=== PATIENT | male | born 1945 | race Caucasian/White ===

== ENCOUNTER 2021-03-28 10:14 | Outpatient (REF) | payer BC, SELFPAY | END 2021-03-28 10:15 | disposition home or self-care (01) | LOC: HO.HMGCLDS 10:14 | PROVIDERS: PCP Family Medicine; Visit Provider Internal Medicine | DX: Z20.822 Contact with and (suspected) exposure to COVID-19 (principal) | CPT/HCPCS: C9803; U0003; U0005 ==

== ENCOUNTER → 2021-06-01 08:21 | Outpatient (BNVA) | payer BC, SELFPAY | PROVIDERS: PCP Family Medicine; Referring Provider Family Medicine; Visit Provider Internal Medicine Cardiovascular Disease | DX: I48.0 Paroxysmal atrial fibrillation (principal); I10 Essential (primary) hypertension | CPT/HCPCS: 93005 ==

== ENCOUNTER → 2021-07-06 09:21 | Outpatient (REF) | payer BC, SELFPAY ==
--- NOTE | 2021-07-06 09:27 | CA_ITS ---
Transthoracic Echocardiogram Patient (Last, First, Middle): Nick Avalos G Gender: Male Date of : 1945 Age: 76 Procedure Date: 07/06/2021 Procedure Type: Transthoracic Echocardiogram Location: OP Height: 172.72 cm Weight: 108.86 kg BSA: 2.21 m2 Heart Rate: bpm BP: 115 / 70 mmHg Finance Business Partner: NUVIA Referring MD: Cy Licea MD Symptoms: I48.0 - Paroxysmal atrial fibrillation Study Quality: Fair ECG Rhythm: Atrial Fibrillation Conclusions: - The left ventricular systolic function is normal. The calculated ejection fraction is 60% by biplane method. - The apical septum and mid inferoseptal segments are hypokinetic. - The apex segment is dyskinetic. - There is moderate calcification of the aortic valve. There is no aortic valve stenosis. - Small plaque is seen in the sinuses of Valsalva and sino tubular ridge. Findings Procedure Information Contrast agent, definity, is being given per protocol without apparent complications. Left Ventricle Normal left ventricular cavity size. There is mildly increased left ventricular wall thickness. The left ventricular systolic function is normal. The calculated ejection fraction is 60% by biplane method. There is evidence of regional wall motion abnormalities. Diastolic function is indeterminate on the basis of available data. Wall Motion Rest Echo Findings The apical septum and mid inferoseptal segments are hypokinetic. The apex segment is dyskinetic. Right Ventricle Normal right ventricular cavity size and systolic function. Atria Both atria are likely dilated. Aortic Valve There is moderate calcification of the aortic valve. There is no aortic valve stenosis. The mean gradient is 8 mmHg. The aortic valve area is 2.30 cm2. There is no aortic valve regurgitation. Mitral Valve The mitral valve appears normal. There is trace mitral valve regurgitation. There is no mitral valve stenosis. Pulmonic Valve The pulmonic valve was not well visualized. Tricuspid Valve Normal tricuspid valve structure. There is mild tricuspid valve regurgitation. The pulmonary artery systolic pressure is normal. Great Vessels Small plaque is seen in the sinuses of Valsalva and sino tubular ridge. Top normal ascending aortic size at 3.9 cm. Venous The inferior vena cava is normal in size and collapses greater than 50% with inspiration. Pericardium/Pleural There is no evidence of pericardial effusion. Prior Study Comparison No prior study available for comparison. Measurements 2D Linear Measurements IVSd: 1.07 0.6-0.9/0.6-1.0 cm LVIDd: 5.42 3.9-5.3/4.2-5.9 cm LVIDd Index: 2.45 2.4-3.2/2.2-3.1 cm/m2 LVIDs: 3.46 2.0-3.6 cm LVPWd: 1.25 0.7-1.1 cm Ao Root: 3.70 2.1-3.5 cm LA Diam: 4.90 2.7-3.8/3.0-4.0 cm LAIDs Index: 2.22 1.5-2.3 cm/m2 LV Mass: 316.64 67-162/88-224 g LV Mass Index: 143.28 43-95/49-115 g/m2 LVOT Diam: 2.20 3.0+(-)1.3 cm 2D Systolic Function EF 4C: 59.50 >55% EF 2C: 59.20 >55% EF BiP: 60.10 >55% Mitral Valve MV Pk E: 0.91 MV Decel Time: 148.00 E'Lateral: 12.80 E'Medial: 7.67 E/E' Med: 11.90 E/E' Lat: 7.10 PHT: 43.00 MVA PHT: 5.12 Decel [place]: 6.22 Aortic Valve AoV Pk Cruz: 1.85 AoV Mn Cruz: 1.32 AoV VTI: 0.34 AoV Pk Grad: 14.00 Aov Mn Grad: 8.00 IRA Cont.VTI: 2.30 LVOT LVOT Pk Cruz: 0.96 LVOT Mn Cruz: 0.68 LVOT VTI: 0.21 LVOT Pk Grad: 4.00 LVOT Mn Grad: 2.00 LVOT Diam: 2.20 LVOT Area: 3.80 Diastolic Function MV Pk E: 0.91 E'Medial: 7.67 E/E' Med: 11.90 E' Laterial: 12.80 E/E' Lat: 7.10 Right Ventricle TAPSE (mm): 2.14 Tricuspid Valve TR Pk Cruz: 2.40 TR Pk Grad: 23.00 RA Press: 3.00 RVSP: 26.00 Great Vessels Aorta Ao Root-2D: 3.70 2.0-3.7 cm Ao Asc: 3.90 2.1-3.4 cm Updated in Other Vendor System with Status of Final Nick Romo MD electronically signed on 07/06/2021 4:53:32 PM with status of Final
--- NOTE | 2021-07-06 09:27 | HM_ITS ---
Total monitoring time 4 days and 18 hours. Underlying rhythm is atrial fibrillation. Overall average rate 69/Min. No significant tachycardia. Longest pause was 2.6 seconds during sleep hours. Rare ventricular ectopy with minimal burden; 1 episode of NSVT for 4 beats. No patient events. Overall, atrial fibrillation with adequate rate control. MTDD
== END ==
LOC: HO.CARD 09:21
PROVIDERS: PCP Family Medicine; Visit Provider Internal Medicine Cardiovascular Disease
DX: I48.0 Paroxysmal atrial fibrillation (principal)
CPT/HCPCS: 93242; 93306; Q9957

== ENCOUNTER → 2021-08-04 07:57 | Outpatient (REF) | payer BC, SELFPAY ==
--- NOTE | ~2021-08-04 | NM_ITS ---
Myocardial perfusion study Indication: Shortness of breath with abnormal echocardiogram with recent onset atrial fibrillation to evaluate for myocardial ischemia Technique: The patient was brought in for a Lexiscan perfusion study on 08/04/2021. Patient performed low-level exercise and was injected 0.4 mg of Lexiscan intravenously. Within a minute of injection, 45 mCi of sestamibi was given intravenously. Images were obtained using the SPECT gamma camera interlaced with the gating device. Images were obtained in supine position. Resting perfusion study was performed on 08/05/2021. Patient was administered 45 mCi of sestamibi intravenously at rest. Images were then obtained in supine position. Images obtained with and without CT attenuation. Total DLP 131 mGy-cm. Images were processed with the software and compared side to side in short axis, horizontal long axis and vertical long axis views. Findings: The stress perfusion study showed on non attenuated images show large area all severely reduced to absent uptake in the inferior wall, absent uptake in the apex, severely reduced uptake in the septum, moderately reduced uptake in the mid and basal lateral as well as absent uptake in the inferolateral mid and basal segments. Attenuated corrected images show absent uptake in the apex, severely reduced uptake in the inferior wall, inferoseptal, apical inferolateral, absent uptake in the mid and basal inferolateral to severely reduced uptake in the basal and mid lateral wall of the LV myocardium.. The gated study shows reduced LV systolic function with calculated LVEF of 46%. LV cavity is moderately dilated size. The gated study shows reduced wall thickening and contraction of apical segments. Resting study shows minimally improved uptake in the apex, with improved uptake in the inferior, septum, basal and mid lateral wall as well as the inferolateral wall of the LV myocardium.. Gating at rest reveals apical wall motion abnormality with ejection fraction at 60%. The findings are consistent with large area of inferior, septal as well as lateral wall ischemia with infarction of the apex.. NM/NM julio perf SPECT rest & str Impression: 1. Myocardial perfusion imaging study shows large area of ischemia in the inferior, septal, inferolateral, lateral wall of the LV myocardium with infarct of the apical 2. Gated LVEF is 46% with stress and 60% at rest 3. Transient ischemic dilatation present EKG is nondiagnostic for ischemia
--- NOTE | 2021-08-04 08:00 | CA_ITS ---
Acquisition Time: 2021-08-04 08:14:14 Total Exercise Time: 00:02:00 Test Indications: Abnormal ECG ABN ECHO Medications: AMLODIPINE ELIQUIS ATENOLOL LISINOPRIL/HCTZ SIMVASTATIN Protocol: LEXISCAN Max HR: 093 BPM 64% of Pred: 145 BPM Max BP: 118/066 mmHG Max Work Load: 1.0 METS Pharmacological stress test with Lexiscan injection, while sitting and kicking his legs, without anginal symptoms, without arrythmia, with normotensive response to injection, with nondiagnostic EKG for ischemia. Nuclear images pending. Referred By: Cy Licea Overread By: PRISCILLA HINDS
== END ==
LOC: HO.CARD 07:57
PROVIDERS: Visit Provider Internal Medicine Cardiovascular Disease
DX: I48.0 Paroxysmal atrial fibrillation (principal)
CPT/HCPCS: 78452; 93017; A9500; J0280; J2785

== ENCOUNTER → 2021-08-08 12:53 | Outpatient (BNVA) | payer BC, SELFPAY | PROVIDERS: PCP Family Medicine; Referring Provider Family Medicine; Visit Provider Internal Medicine Cardiovascular Disease ==